=== PATIENT | male | born 1940 ===

== ENCOUNTER 2022-01-31 23:15 | Observation (INO) ==
[2022-02-01 00:58] LABS: ABS Lymphocytes 0.8 10^3/ul (1.0-4.8); ABS Monocytes 0.5 10^3/ul (0-0.8); Hematocrit 30 % (42-52); Hemoglobin 9.3 g/dL (14.0-18.0); Lymphocyte % 11.2 %; Mean Corpuscular HGB Conc 32 g/dL (31-36); Mean Corpuscular Hemoglobin 27 pg (27-31); Mean Corpuscular Volume 84 fL (80-94); Mean Platelet Volume 7.7 fL (7.4-10.4); Platelet Count 236 10^3/uL (150-450); Red Blood Count 3.51 10^6 /uL (4.18-5.48); Red Cell Distribution Width 16 % (10-15); White Blood Count 7.4 10^3/uL (3.5-10.8)
[2022-02-01 01:03] LABS: Albumin 3.5 g/dL (3.2-5.2); Albumin/Globulin Ratio 1.7 (1-3); C Reactive Protein 161.69 mg/L (<8.01); Calcium 8.6 mg/dL (8.6-10.3); Globulin 2.1 g/dL (2-4); Phosphorus 4.1 mg/dL (2.5-5.0); Potassium 3.8 mmol/L (3.5-5.0); Total Bilirubin 0.6 mg/dL (0.2-1.0); Total Protein 5.6 g/dL (6.4-8.9); eGFR CKD-EPI 85.6 (>60)
[2022-02-01 01:24] LABS: Urine Appearance Clear; Urine Bilirubin Negative (Negative); Urine Blood Negative (Negative); Urine Color Yellow; Urine Glucose Negative (Negative); Urine Ketones 1+ (15mg/dL) (Negative); Urine Protein Negative (Negative); Urine Specific Gravity 1.015 (1.005-1.030); Urine Urobilinogen 0.2 (Negative) (Negative)
[2022-02-01 01:25] LABS: Urine Nitrite Positive (Negative)
[2022-02-01 01:34] LABS: Urine Bacteria 1+ (Absent); Urine Red Blood Cell Absent (Absent); Urine White Blood Cell 3+(>20/hpf) (Absent)
[2022-02-01] MEDS ORDERED: cefTRIAXone 1 gm/50 mL D5W 1 GM/50 ML BAG IV ONE (01:48)
[2022-02-01] MEDS ORDERED: NS 0.9% 1000 ml BAG 1,000 ML IV ONE (01:48)
[2022-02-01] MEDS ORDERED: Lidocaine 2% JELLY 6 ML Topical TOPICAL ONE (01:57)
[2022-02-01] MEDS ORDERED: Piperacillin/Tazobac ADVAN 3.375 GM in NS 0.9% 100 ml BAG 100 ML IVPB ONE (04:38)
[2022-02-01] MEDS ORDERED: SULFASALAZINE 500 MG PO SCH (14:00)
[2022-02-01] MEDS: Calcium Carb (TUMS) 500 mg CHEW TAB PO SCH ×2 (20:03→20:13)
[2022-02-01] MEDS: Mesalamine RECTAL SUSP 4 GM/60 ML RECTAL.SUS PR SCH (20:15)
[2022-02-02 06:27] LABS: ABS Lymphocytes 0.6 10^3/ul (1.0-4.8); ABS Monocytes 0.5 10^3/ul (0-0.8); ABS Neutrophils 5.4 10^3/ul (1.5-7.7); Hematocrit 25 % (42-52); Hemoglobin 8.5 g/dL (14.0-18.0); Lymphocyte % 8.7 %; Mean Corpuscular HGB Conc 34 g/dL (31-36); Mean Corpuscular Hemoglobin 28 pg (27-31); Mean Corpuscular Volume 84 fL (80-94); Mean Platelet Volume 7.9 fL (7.4-10.4); Nucleated Red Blood Cells % 0.1; Platelet Count 216 10^3/uL (150-450); Red Blood Count 3.01 10^6 /uL (4.18-5.48); Red Cell Distribution Width 17 % (10-15); White Blood Count 6.5 10^3/uL (3.5-10.8)
[2022-02-02 06:45] LABS: Calcium 8.3 mg/dL (8.6-10.3); eGFR CKD-EPI 91.2 (>60)
[2022-02-02] MEDS ORDERED: cefTRIAXone 1 gm/50 mL D5W 1 GM/50 ML BAG IV SCH ×3 (09:00→11:00)
[2022-02-02] MEDS: Calcium Carb (TUMS) 500 mg CHEW TAB PO SCH ×3 (09:19→21:53)
[2022-02-02] MEDS: Mesalamine RECTAL SUSP 4 GM/60 ML RECTAL.SUS PR SCH (22:14)
[2022-02-03 05:53] VITALS: BP 118/66
[2022-02-03 06:16] LABS: ABS Lymphocytes 0.8 10^3/ul (1.0-4.8); ABS Monocytes 0.5 10^3/ul (0-0.8); ABS Neutrophils 4.5 10^3/ul (1.5-7.7); Hematocrit 25 % (42-52); Hemoglobin 8.3 g/dL (14.0-18.0); Lymphocyte % 13.7 %; Mean Corpuscular HGB Conc 33 g/dL (31-36); Mean Corpuscular Hemoglobin 27 pg (27-31); Mean Corpuscular Volume 82 fL (80-94); Mean Platelet Volume 7.7 fL (7.4-10.4); Platelet Count 253 10^3/uL (150-450); Red Blood Count 3.09 10^6 /uL (4.18-5.48); Red Cell Distribution Width 16 % (10-15); White Blood Count 5.9 10^3/uL (3.5-10.8)
[2022-02-03] MEDS: Calcium Carb (TUMS) 500 mg CHEW TAB PO SCH (09:02)
== END 2022-02-03 09:45 | disposition home or self-care (01) ==
LOC: ED 23:15 → EDHOLD 23:15 → SUATTDRO 02-01 03:21 → EDHOLD 02-01 09:30 → MED 02-01 10:48
PROVIDERS: ADMIT Internal Medicine; ATTEND Hospitalist